=== PATIENT | female | born 1955 | race Asian ===

== ENCOUNTER 2016-04-11 00:49 | Emergency (ER) | payer OTHER ==
[~2016-04-11] VITALS: Ht 172.7 cm; Wt 59.0 kg
[2016-04-11 01:50] VITALS: BP 155/90; TEMP 99
== END 2016-04-11 01:56 | disposition home or self-care (01) ==
LOC: ED 00:49
DX: S80.01XA Contusion of right knee, initial encounter (principal); M17.11 Unilateral primary osteoarthritis, right knee; Y09 Assault by unspecified means; Y92.410 Unspecified street and highway as the place of occurrence of the external cause
CPT/HCPCS: 99283

== ENCOUNTER 2017-01-14 17:44 | Emergency (ER) | payer OTHER ==
[~2017-01-14] VITALS: Ht 157.5 cm; Wt 54.4 kg
[2017-01-14 18:32] LABS: PLATELET COUNT 183 K/uL (152-353)
[2017-01-14 18:40] LABS: POTASSIUM 3.2 mmol/L (3.6-5.2); SODIUM 130 mmol/L (136-145)
[2017-01-14 19:10] VITALS: BP 104/73; TEMP 98.7
== END 2017-01-14 19:12 | disposition home or self-care (01) ==
LOC: ED 17:44
DX: J02.0 Streptococcal pharyngitis (principal); F14.10 Cocaine abuse, uncomplicated; F10.10 Alcohol abuse, uncomplicated; J44.9 Chronic obstructive pulmonary disease, unspecified
CPT/HCPCS: 36415; 80053; 80307; 80320; 81000; 85027; 87501; 87804; 87880; 99283; G0479

== ENCOUNTER 2017-02-04 15:31 | Emergency (ER) | payer OTHER ==
[~2017-02-04] VITALS: Ht 160 cm; Wt 51.3 kg
[2017-02-04 15:52] VITALS: TEMP 98.5
[2017-02-04 17:34] LABS: PLATELET COUNT 186 K/uL (152-353)
[2017-02-04 18:15] VITALS: BP 148/91
== END 2017-02-04 18:25 | disposition home or self-care (01) ==
LOC: ED 15:31
DX: F43.22 Adjustment disorder with anxiety (principal); J45.909 Unspecified asthma, uncomplicated
CPT/HCPCS: 36415; 85027; 94664; 96365; 96374; 96375; 99284; J1956; J2060; J2930

== ENCOUNTER 2017-05-16 16:33 | Emergency (ER) | payer OTHER ==
[~2017-05-16] VITALS: Ht 160 cm; Wt 49.9 kg
[2017-05-16 16:39] VITALS: BP 125/80; TEMP 98.4
[2017-05-16 17:10] LABS: PLATELET COUNT 230 K/uL (152-353)
== END 2017-05-16 17:25 | disposition home or self-care (01) ==
LOC: ED 16:33
DX: L03.011 Cellulitis of right finger (principal)
CPT/HCPCS: 85027; 99282

== ENCOUNTER 2017-05-22 14:51 | Emergency (ER) | payer OTHER ==
[~2017-05-22] VITALS: Ht 160 cm; Wt 49.9 kg
[2017-05-22 14:57] VITALS: TEMP 97.5
[2017-05-22 15:48] LABS: PLATELET COUNT 195 K/uL (152-353)
[2017-05-22 16:05] VITALS: BP 108/78
== END 2017-05-22 16:40 | disposition home or self-care (01) ==
LOC: ED 14:51
DX: L03.011 Cellulitis of right finger (principal)
CPT/HCPCS: 85027; 96372; 99283; J0696

== ENCOUNTER 2017-06-10 13:08 | Outpatient (CLI) | payer OTHER | END 2017-06-10 13:14 | disposition short-term general hospital (02) | LOC: AMB 13:08 | DX: S60.572A Other superficial bite of hand of left hand, initial encounter (principal); W54.0XXA Bitten by dog, initial encounter; Y93.89 Activity, other specified; Y92.480 Sidewalk as the place of occurrence of the external cause | CPT/HCPCS: A0425; A0429 ==

== ENCOUNTER 2017-06-10 13:13 | Emergency (ER) | payer OTHER ==
[~2017-06-10] VITALS: Ht 160 cm; Wt 52.2 kg
[2017-06-10 13:16] VITALS: TEMP 98.6
[2017-06-10 14:50] VITALS: BP 148/94
== END 2017-06-10 15:10 | disposition home or self-care (01) ==
LOC: ED 13:13
DX: R22.32 Localized swelling, mass and lump, left upper limb (principal); W54.0XXA Bitten by dog, initial encounter
CPT/HCPCS: 96372; 99283; J1885

== ENCOUNTER 2018-02-22 12:31 | Emergency (ER) | payer OTHER ==
[~2018-02-22] VITALS: Ht 157.5 cm; Wt 49.9 kg
[2018-02-22 13:29] LABS: PLATELET COUNT 153 K/uL (152-353)
[2018-02-22 14:38] VITALS: BP 128/70; TEMP 97.8
== END 2018-02-22 14:41 | disposition home or self-care (01) ==
LOC: ED 12:31
DX: S00.93XA Contusion of unspecified part of head, initial encounter (principal); M54.2 Cervicalgia; F12.90 Cannabis use, unspecified, uncomplicated; F14.90 Cocaine use, unspecified, uncomplicated; F10.10 Alcohol abuse, uncomplicated; W19.XXXA Unspecified fall, initial encounter
CPT/HCPCS: 36415; 80053; 80307; 80320; 81000; 85027; 99283

== ENCOUNTER 2018-08-06 08:41 | Emergency (ER) | payer OTHER ==
[~2018-08-06] VITALS: Ht 157.5 cm; Wt 54.4 kg
[2018-08-06 08:50] VITALS: BP 165/92; TEMP 98.3
== END 2018-08-06 09:39 | disposition home or self-care (01) ==
LOC: ED 08:41
DX: M79.641 Pain in right hand (principal); R22.31 Localized swelling, mass and lump, right upper limb; S60.221A Contusion of right hand, initial encounter; W20.8XXA Other cause of strike by thrown, projected or falling object, initial encounter
CPT/HCPCS: 99282

== ENCOUNTER 2019-01-21 14:07 | Emergency (ER) | payer OTHER ==
[~2019-01-21] VITALS: Ht 160 cm; Wt 50.5 kg
[2019-01-21 14:28] VITALS: TEMP 98.1
[2019-01-21 15:23] LABS: PLATELET COUNT 252 K/uL (152-353)
[2019-01-21 15:28] LABS: POTASSIUM 3.7 mmol/L (3.6-5.2)
[2019-01-21 17:18] VITALS: BP 148/69
== END 2019-01-21 17:18 | disposition home or self-care (01) ==
LOC: ED 14:07
PROVIDERS: Emergency Medicine Emergency Medical Services
DX: J42 Unspecified chronic bronchitis (principal); J18.9 Pneumonia, unspecified organism; M79.645 Pain in left finger(s); F17.210 Nicotine dependence, cigarettes, uncomplicated
CPT/HCPCS: 80053; 80307; 81000; 85027; 94664; 99283

== ENCOUNTER 2019-11-04 07:18 | Emergency (ER) | payer OTHER ==
[~2019-11-04] VITALS: Ht 160 cm; Wt 50.3 kg
[2019-11-04 07:18] VITALS: TEMP 100.5
[2019-11-04 07:42] LABS: PLATELET COUNT 191 K/uL (152-353)
[2019-11-04 07:45] VITALS: BP 124/78
[2019-11-04 07:47] LABS: POTASSIUM 3.8 mmol/L (3.6-5.2)
== END 2019-11-04 10:33 | disposition still patient (30) ==
LOC: ED 07:18
PROVIDERS: Family Medicine
DX: J45.901 Unspecified asthma with (acute) exacerbation (principal); F17.210 Nicotine dependence, cigarettes, uncomplicated
CPT/HCPCS: 80053; 85027; 96374; 99284

== ENCOUNTER 2021-10-30 09:18 | Inpatient (IN) | payer BC ==
[~2021-10-30] VITALS: Ht 157.5 cm; Wt 45.0 kg
[2021-10-30 17:12] LABS: POTASSIUM 4.5 mmol/L (3.6-5.2)
[2021-10-30 18:00] LABS: PLATELET COUNT 149 K/uL (152-353)
[2021-10-30 18:33] VITALS: BP 134/87; TEMP 97.7; Ht 157.5 cm; Wt 45.0 kg
[2021-10-30 20:00] VITALS: BP 99/75; TEMP 98.8
[2021-10-31] VITALS: BP 99/75; TEMP 98.8
[2021-10-31 04:00] VITALS: BP 95/56; TEMP 98.4
[2021-10-31 08:00] VITALS: BP 102/64; TEMP 98.5
[2021-10-31 12:00] VITALS: BP 115/65; TEMP 98.7
[2021-10-31] MEDS ORDERED: AZIT250T3 PO (12:08)
[2021-10-31] MEDS ORDERED: MEDROL DOSEPAK4 MG PO (12:12)
[2021-10-31] MEDS ORDERED: ALBU90AE13 INH (12:15)
== END 2021-10-31 15:43 | disposition home or self-care (01) | DRG 190 ==
LOC: ED 09:18 → MED/SURG 13:34
PROVIDERS: ADMIT Internal Medicine; ATTEND Internal Medicine
DX: J44.0 Chronic obstructive pulmonary disease with (acute) lower respiratory infection (principal); J18.8 Other pneumonia, unspecified organism; J44.1 Chronic obstructive pulmonary disease with (acute) exacerbation; Z72.0 Tobacco use
CPT/HCPCS: 36415; 36600; 80053; 80320; 82550; 82805; 84484; 85027; 87040; 87077; 87185; 87205; 87635; 90658; 90732; 93005; 94644; 94645; 94664; 94760; 96365; 96375; 99284; J0696; J1100; J2930; J7040; U0003

== ENCOUNTER 2022-01-21 07:12 | Emergency (ER) | payer BC ==
[~2022-01-21] VITALS: Ht 157.5 cm; Wt 44.9 kg
[~2022-01-21 07:12] MED LIST: ALBU90AE13 INH; AZIT250T3 PO; MEDROL DOSEPAK4 MG PO
[2022-01-21 07:25] VITALS: TEMP 99
[2022-01-21 08:26] LABS: PLATELET COUNT 218 K/uL (152-353)
[2022-01-21 08:35] LABS: POTASSIUM 4.5 mmol/L (3.6-5.2)
[2022-01-21 11:30] VITALS: BP 108/68
== END 2022-01-21 11:30 | disposition home or self-care (01) ==
LOC: ED 07:12
PROVIDERS: Emergency Medicine
DX: R10.84 Generalized abdominal pain (principal); N39.0 Urinary tract infection, site not specified; J44.1 Chronic obstructive pulmonary disease with (acute) exacerbation; F17.210 Nicotine dependence, cigarettes, uncomplicated
CPT/HCPCS: 36415; 80053; 81000; 84484; 85027; 87040; 87088; 93005; 94664; 96360; 96365; 96366; 96375; 99284; J1885; J1956; J2405; J2920

== ENCOUNTER 2022-02-19 01:30 | Emergency (ER) | payer BC ==
[~2022-02-19] VITALS: Ht 157.5 cm; Wt 44.9 kg
[2022-02-19 02:34] LABS: PLATELET COUNT 190 K/uL (152-353)
[2022-02-19 02:39] LABS: POTASSIUM 3.4 mmol/L (3.6-5.2)
[2022-02-19 07:35] VITALS: BP 112/73; TEMP 98.3
== END 2022-02-19 07:35 | disposition short-term general hospital (02) ==
LOC: ED 01:30
PROVIDERS: Emergency Medicine Emergency Medical Services
DX: J44.1 Chronic obstructive pulmonary disease with (acute) exacerbation (principal); R06.89 Other abnormalities of breathing; U07.1 COVID-19; F17.210 Nicotine dependence, cigarettes, uncomplicated
CPT/HCPCS: 36415; 36600; 80053; 80307; 82805; 83605; 83735; 83880; 84484; 85027; 85379; 85610; 87040; 87502; 87635; 94660; 94664; 96360; 96361; 96365; 99285; J1956; U0003

== ENCOUNTER 2022-05-20 15:44 | Emergency (ER) | payer OTHER ==
[~2022-05-20] VITALS: Ht 162.6 cm; Wt 47.6 kg
[2022-05-20 16:21] LABS: PLATELET COUNT 202 K/uL (152-353)
[2022-05-20 16:37] LABS: POTASSIUM 4.2 mmol/L (3.6-5.2)
[2022-05-20 18:35] VITALS: BP 124/77; TEMP 97.9
== END 2022-05-20 18:40 | disposition home or self-care (01) ==
LOC: ED 15:44
PROVIDERS: Emergency Medicine Emergency Medical Services
DX: M25.551 Pain in right hip (principal); S39.012A Strain of muscle, fascia and tendon of lower back, initial encounter; X58.XXXA Exposure to other specified factors, initial encounter; Y92.89 Other specified places as the place of occurrence of the external cause
CPT/HCPCS: 36415; 80053; 81002; 85027; 96361; 96374; 96375; 99284; J2270; J2405; Q9963

== ENCOUNTER 2022-10-25 07:58 | Inpatient (IN) | payer OTHER ==
[2022-10-25] VITALS (10 sets, daily range): BP systolic 107–149; BP diastolic 73–92; TEMP 97.7–99.6; Ht 160 cm; Wt 48.2 kg
[~2022-10-25] VITALS: Ht 160 cm; Wt 48.2 kg
[~2022-10-25 07:58] MED LIST changes: +ALBUTEROL108 MCG/AC INH; +BUDE1AER5 INH; +DICLOFEN POT50 MG PO; +MONDOXYNE NL100 MG PO; +NICOTINE S21 MG/24 H TD; +PRED10TA27 PO
[2022-10-25 08:43] LABS: PLATELET COUNT 184 K/uL (152-353)
[2022-10-25 08:53] LABS: POTASSIUM 5.3 mmol/L (3.6-5.2)
[2022-10-25] MEDS ORDERED: PROTONIX20 MG PO (13:08)
[2022-10-26 03:53] VITALS: BP 112/69; TEMP 98.1
[2022-10-26 05:04] LABS: PLATELET COUNT 151 K/uL (152-353)
[2022-10-26 05:19] LABS: POTASSIUM 3.8 mmol/L (3.6-5.2)
[2022-10-26 08:00] VITALS: BP 139/90; TEMP 98.7
[2022-10-26 12:07] VITALS: BP 117/73; TEMP 98.5
[2022-10-26 16:00] VITALS: BP 114/72; TEMP 99.2
[2022-10-26 20:00] VITALS: BP 110/67; TEMP 99
[2022-10-26 23:37] VITALS: BP 112/74; TEMP 97.9
[2022-10-27 03:38] VITALS: BP 108/62; TEMP 98.6
[2022-10-27 05:10] LABS: PLATELET COUNT 163 K/uL (152-353)
[2022-10-27 05:23] LABS: POTASSIUM 4.2 mmol/L (3.6-5.2)
[2022-10-27 08:00] VITALS: BP 120/75; TEMP 98
[2022-10-27 12:00] VITALS: BP 136/84; TEMP 98.8
[2022-10-27 16:00] VITALS: BP 115/73; TEMP 97.9
[2022-10-27 20:00] VITALS: BP 115/74; TEMP 99.4
[2022-10-28] VITALS: BP 138/83; TEMP 98.6
[2022-10-28 03:52] VITALS: BP 120/74; TEMP 98.4
[2022-10-28 05:50] LABS: PLATELET COUNT 176 K/uL (152-353)
[2022-10-28 05:57] LABS: POTASSIUM 3.6 mmol/L (3.6-5.2)
[2022-10-28 08:00] VITALS: BP 133/84; TEMP 97.9
[2022-10-28 12:00] VITALS: BP 125/72; TEMP 98.4
[2022-10-28 16:00] VITALS: BP 116/77; TEMP 99
[2022-10-28 20:00] VITALS: BP 144/90; TEMP 98.8
[2022-10-29] VITALS: BP 143/89; TEMP 98.5
[2022-10-29 04:00] VITALS: BP 116/79; TEMP 98.4
[2022-10-29 07:57] VITALS: BP 122/74; TEMP 98.6
[2022-10-29] MEDS ORDERED: PRED10TA27 PO (10:43)
[2022-10-29 12:00] VITALS: BP 128/84; TEMP 98.8
== END 2022-10-29 14:48 | disposition home or self-care (01) | DRG 177 ==
LOC: ED 07:58 → MED/SURG 09:46
PROVIDERS: Family Medicine; ADMIT Internal Medicine Endocrinology, Diabetes & Metabolism; ATTEND Internal Medicine Endocrinology, Diabetes & Metabolism
DX: U07.1 COVID-19 (principal); J96.21 Acute and chronic respiratory failure with hypoxia; J44.1 Chronic obstructive pulmonary disease with (acute) exacerbation; K21.9 Gastro-esophageal reflux disease without esophagitis; M13.88 Other specified arthritis, other site; G89.4 Chronic pain syndrome; Z99.81 Dependence on supplemental oxygen; Z72.0 Tobacco use
CPT/HCPCS: 36415; 80048; 80053; 83880; 84484; 85027; 87635; 93005; 94664; 94760; 96365; 96367; 96374; 96375; 99284; J0248; J0456; J1100; J1650; J2930; U0003